=== PATIENT | female | born 1975 | race American Indian/Alaskan Native ===

== ENCOUNTER 2017-07-17 17:08 | Emergency (ER) | payer MEDICARE ==
[2017-07-17 17:53] LABS: Basophils % (Auto) 0.6 % (0.0-1.8); Eosinophils # (Auto) 0.1 K/mm3 (0.0-0.4); Eosinophils % (Auto) 0.8 % (0.0-4.3); Hemoglobin 12.6 gm/dl (10.1-14.3); Lymphocytes # (Auto) 1.6 K/mm3 (1.2-5.4); Lymphocytes % (Auto) 21.7 % (13.4-35.0); Mean Corpuscular HGB Conc 32 % (30-34); Mean Corpuscular Hemoglobin 27 pg (28-32); Mean Corpuscular Volume 86 fl (79-97); Monocytes # (Auto) 0.6 K/mm3 (0.0-0.8); Monocytes % (Auto) 8.3 % (0.0-7.3); Platelet Count 311 K/mm3 (140-440); Red Blood Count 4.68 M/mm3 (3.65-5.03); Red Cell Distribution Width 15.9 % (13.2-15.2)
[2017-07-17 18:11] LABS: BUN/Creatinine Ratio 9; Blood Urea Nitrogen 6 mg/dL (7-17); Calcium 8.7 mg/dL (8.4-10.2); Hemolysis Index 5
[2017-07-17 19:57] LABS: Bilirubin,Urine NEG (Negative); Blood,Urine MOD (Negative); Color,Urine Yellow (Yellow); Mucus,Urine 2+ /HPF; Urobilinogen,Urine < 2.0 mg/dL (<2.0)
[2017-07-17 20:14] LABS: Amphetamine Screen,Urine PRESUMPTIVE NEGATIVE; Benzodiazepines Screen,Urine PRESUMPTIVE NEGATIVE; Cocaine Screen,Urine PRESUMPTIVE NEGATIVE; Methadone Screen,Urine PRESUMPTIVE NEGATIVE; Opiate Screen,Urine PRESUMPTIVE NEGATIVE
[2017-07-17 20:26] LABS: Cannabinoid Screen,Urine PRESUMPTIVE POSITIVE
[2017-07-17] MEDS ORDERED: NORVASC PO ONE (22:10)
--- NOTE | 2017-07-17 22:11 | Emergency Department Report ---
ED General Adult HPI - General Chief complaint: Psych Stated complaint: MEDICAL EVAL Time Seen by Provider: 07/17/17 18:41 Source: patient Mode of arrival: Ambulatory Limitations: No Limitations - History of Present Illness Initial comments: Ms. Powell is a 42 yo female with hx of schizophrenia and bipolar affective disorder. Her daughter called 911 for depression and suicidal ideation. She does not have a plan to harm herself. However she feels helpless and out of control. She has not taken her psychiatric medications in 3 days. She has not seen a psychiatrist since moving from [place], [place] 2 years ago. She came to live with her daughter due to her multiple medical issues mainly stroke. She's severely depressed. No hallucinations currently. She has had a previous suicide attempt. - Related Data Allergies Allergy/AdvReac Type Severity Reaction Status Date / Time banana Allergy Hives Verified 07/17/17 17:14 Fish Containing Products Allergy Hives Verified 07/17/17 17:14 Latex, Natural Rubber Allergy Hives Verified 07/17/17 17:14 ED Review of Systems ROS: Stated complaint: MEDICAL EVAL Other details as noted in HPI Comment: All other systems reviewed and negative Constitutional: denies: fever, malaise Respiratory: denies: cough Cardiovascular: denies: chest pain ED Past Medical Hx - Past Medical History Hx Hypertension: Yes Hx CVA: Yes Hx Psychiatric Treatment: Yes Additional medical history: trach - Surgical History Additional Surgical History: valve replacement - Social History Smoking Status: Current Every Day Smoker Substance Use Type: Alcohol, Marijuana ED Physical Exam - General Limitations: No Limitations General appearance: alert, in no apparent distress - Head Head exam: Present: atraumatic, normocephalic - Eye Eye exam: Present: normal appearance - ENT ENT exam: Present: mucous membranes moist - Neck Neck exam: Present: normal inspection, other (tracheostomy site clean and dry) - Respiratory Respiratory exam: Present: normal lung sounds bilaterally. Absent: respiratory distress, wheezes, rales, rhonchi - Cardiovascular Cardiovascular Exam: Present: regular rate, normal rhythm. Absent: systolic murmur, diastolic murmur, rubs, gallop - GI/Abdominal GI/Abdominal exam: Present: soft, normal bowel sounds. Absent: distended, tenderness, guarding, rebound - Extremities Exam Extremities exam: Present: normal inspection - Back Exam Back exam: Present: normal inspection - Neurological Exam Neurological exam: Present: alert, oriented X3, normal gait. Absent: motor sensory deficit - Psychiatric Psychiatric exam: Present: depressed, flat affect, suicidal ideation - Skin Skin exam: Present: warm, dry, intact, normal color. Absent: rash ED Course Vital Signs 07/17/17 07/17/17 17:14 20:14 Temperature 98.7 F 99 F Pulse Rate 72 72 Respiratory 20 20 Rate Blood Pressure 182/111 Blood Pressure 182/100 [Left] O2 Sat by Pulse 100 98 Oximetry ED Medical Decision Making - Lab Data Result diagrams: 07/17/17 17:31 07/17/17 17:31 Laboratory Results - last 24 hr 07/17/17 07/17/17 07/17/17 17:31 17:31 17:31 WBC RBC Hgb Hct MCV MCH MCHC RDW Plt Count Lymph % (Auto) Nolan % (Auto) Eos % (Auto) Baso % (Auto) Lymph # Nolan # Eos # Baso # Seg Neutrophils % Seg Neutrophils # Sodium 135 L Potassium 3.7 Chloride 95.9 L Carbon Dioxide 26 Anion Gap 17 BUN 6 L Creatinine 0.7 Estimated GFR > 60 BUN/Creatinine Ratio 9 Glucose 290 H Calcium 8.7 HCG, Qual Urine Color Urine Turbidity Urine pH Ur Specific [place] Urine Protein Urine Glucose (UA) Urine Ketones Urine Blood Urine Nitrite Urine Bilirubin Urine Urobilinogen Ur Leukocyte Esterase Urine WBC (Auto) Urine RBC (Auto) U Epithel Cells (Auto) Urine Mucus Salicylates < 0.3 L Urine Opiates Screen Urine Methadone Screen Acetaminophen < 5.0 L Ur Barbiturates Screen Ur Phencyclidine Scrn Ur Amphetamines Screen U Benzodiazepines Scrn Urine Cocaine Screen U Marijuana (THC) Screen Drugs of Abuse Note Plasma/Serum Alcohol 07/17/17 07/17/17 07/17/17 17:31 17:31 17:31 WBC 7.1 RBC 4.68 Hgb 12.6 Hct 40.0 MCV 86 MCH 27 L MCHC 32 RDW 15.9 H Plt Count 311 Lymph % (Auto) 21.7 Nolan % (Auto) 8.3 H Eos % (Auto) 0.8 Baso % (Auto) 0.6 Lymph # 1.6 Nolan # 0.6 Eos # 0.1 Baso # 0.0 Seg Neutrophils % 68.6 Seg Neutrophils # 4.9 Sodium Potassium Chloride Carbon Dioxide Anion Gap BUN Creatinine Estimated GFR BUN/Creatinine Ratio Glucose Calcium HCG, Qual Negative Urine Color Urine Turbidity Urine pH Ur Specific [place] Urine Protein Urine Glucose (UA) Urine Ketones Urine Blood Urine Nitrite Urine Bilirubin Urine Urobilinogen Ur Leukocyte Esterase Urine WBC (Auto) Urine RBC (Auto) U Epithel Cells (Auto) Urine Mucus Salicylates Urine Opiates Screen Urine Methadone Screen Acetaminophen Ur Barbiturates Screen Ur Phencyclidine Scrn Ur Amphetamines Screen U Benzodiazepines Scrn Urine Cocaine Screen U Marijuana (THC) Screen Drugs of Abuse Note Plasma/Serum Alcohol < 0.01 07/17/17 07/17/17 19:37 19:37 WBC RBC Hgb Hct MCV MCH MCHC RDW Plt Count Lymph % (Auto) Nolan % (Auto) Eos % (Auto) Baso % (Auto) Lymph # Nolan # Eos # Baso # Seg Neutrophils % Seg Neutrophils # Sodium Potassium Chloride Carbon Dioxide Anion Gap BUN Creatinine Estimated GFR BUN/Creatinine Ratio Glucose Calcium HCG, Qual Urine Color Yellow Urine Turbidity Clear Urine pH 5.0 Ur Specific [place] 1.036 H Urine Protein 100 mg/dl Urine Glucose (UA) >=500 Urine Ketones 20 Urine Blood Mod Urine Nitrite Neg Urine Bilirubin Neg Urine Urobilinogen < 2.0 Ur Leukocyte Esterase Neg Urine WBC (Auto) 3.0 Urine RBC (Auto) 14.0 U Epithel Cells (Auto) 21.0 H Urine Mucus 2+ Salicylates Urine Opiates Screen Presumptive negative Urine Methadone Screen Presumptive negative Acetaminophen Ur Barbiturates Screen Presumptive negative Ur Phencyclidine Scrn Presumptive negative Ur Amphetamines Screen Presumptive negative U Benzodiazepines Scrn Presumptive negative Urine Cocaine Screen Presumptive negative U Marijuana (THC) Screen Presumptive positive Drugs of Abuse Note Disclamer Plasma/Serum Alcohol Vital Signs - 24 hr 07/17/17 07/17/17 17:14 20:14 Temperature 98.7 F 99 F Pulse Rate 72 72 Respiratory 20 20 Rate Blood Pressure 182/111 Blood Pressure 182/100 [Left] O2 Sat by Pulse 100 98 Oximetry - Medical Decision Making Ms. Powell has a history of schizophrenia and bipolar affective disorder. She does not have access to psychiatric care. After evaluation by mental health detail assembler, she was unable to contract for safety. She is placed on 1013 for suicidal ideation with high risk of self-harm with previous suicide attempt. She will be transferred to psychiatric facility. She is medically clear at this time for psychiatric care. She has asymptomatic hypertension. Mild hyperglycemia. Critical care attestation.: If time is entered above; I have spent that time in minutes in the direct care of this critically ill patient, excluding procedure time. ED Disposition Clinical Impression: Suicidal ideation, Acute depression Disposition: [id number]/TX-70 ANOTHER TYPE HLTHCARE Is pt being admited?: No Does the pt Need Aspirin: No Condition: Stable Time of Disposition: 22:12
[2017-07-18 11:49] LABS: INR 2.9 (0.87-1.13); Partial Thromboplastin Time 53.6 Sec. (24.2-36.6)
--- NOTE | 2017-07-18 15:11 | Consultation ---
History of Present Illness - Reason for Consult Consult date: 07/18/17 Reason for consult: Mental Health Evaluation Requesting physician: MICHAEL BENDER - Chief Complaint Chief complaint: "My kids are not right" - History of Present Psychiatric Illness 42 y.o. AA female presenting to [facility] for depression and SI's. Today the patient is calm and cooperative during the assessment. She stated that she told her baker that she was suicidal because of the relationship with her kids. She stated ever since her stroke several tears ago, her relationship with her kids has been "awful." She stated that she cannot cope with the stress from their relationship. She acknowledged prior suicide attempts in the past by overdose. She does not have a suicide plan when asked. She rate her depression 7/10, with 10 being the worse. She stated having a poor appetite with erratic sleep. She denies HI's and AVHs'. She denies recreational drug use, but positive for marijuana. She denies alcohol consumption (etoh). Medications and Allergies Allergies Allergy/AdvReac Type Severity Reaction Status Date / Time banana Allergy Hives Verified 07/17/17 17:14 Fish Containing Products Allergy Hives Verified 07/17/17 17:14 Latex, Natural Rubber Allergy Hives Verified 07/17/17 17:14 Home Medications Medication Instructions Recorded Confirmed Last Taken Type Amlodipine Besylate [Norvasc] 10 mg PO DAILY 07/17/17 07/17/17 Unknown History Lisinopril [Zestril] 10 mg PO DAILY 07/17/17 07/17/17 Unknown History Metoprolol [Lopressor TAB] 50 mg PO DAILY 07/17/17 07/17/17 Unknown History Warfarin [Coumadin] 7.5 mg PO QDAY 07/17/17 07/18/17 1 Day Ago History ~07/17/17 risperiDONE [RisperDAL] 1 mg PO HS 07/17/17 07/17/17 Unknown History traZODone [Desyrel] 50 mg PO QHS 07/17/17 07/17/17 Unknown History Active Meds: Active Medications Amlodipine Besylate (Norvasc) 10 mg PO DAILY [facility] Lisinopril (Zestril) 10 mg PO DAILY [facility] Metoprolol Tartrate (Lopressor) 50 mg PO DAILY [facility] Risperidone (Risperdal) 1 mg PO HS [facility] Trazodone HCl (Desyrel) 50 mg PO QHS [facility] Warfarin Sodium (Coumadin) 7.5 mg PO DAILY@1700 [facility]; Protocol Warfarin Sodium (Coumadin Pharmacy To Dose) 1 each PO PKCONSULT [facility]I Past psychiatric history - Past Medical History Past Medical History: stroke Past Surgical History: Other (Trach, Heart Valve Replacement ) - past Psychiatric treatment and history Psych: Depression psychiatric treatment history: Multiple inpatient psy settings. Denies a fam psy hx. - Social History Social history: lives with family Mental Status Exam - Vital signs Last Vital Signs Temp 98.6 F 07/18/17 10:00 Pulse 98 H 07/18/17 10:00 Resp 18 07/18/17 10:00 BP 144/83 07/18/17 10:00 Pulse Ox 95 07/18/17 10:00 - Exam Narrative exam: MSE: Appearance: calm, cooperative Behavior: regular eye contact Speech: regular rate and tone Mood: "depressed" withdrawn Affect: flat Thought Process: circumstantial Thought Content: denies HI's and AVH's Motor Activity: ambulatory Cognition: A/O x 3 Insight: fair Judgment: variable Results Result Diagrams: 07/17/17 17:31 07/17/17 17:31 Abnormal lab results 07/17/17 07/17/17 07/17/17 Range/Units 17:31 17:31 17:31 MCH (28-32) pg RDW (13.2-15.2) % Dixon % (Auto) (0.0-7.3) % PT (12.2-14.9) Sec. INR (0.87-1.13) APTT (24.2-36.6) Sec. Sodium 135 L (137-145) mmol/L Chloride 95.9 L (98-107) mmol/L BUN 6 L (7-17) mg/dL Glucose 290 H (65-100) mg/dL Ur Specific [place] (1.003-1.030) U Epithel Cells (Auto) (0-13.0) /HPF Salicylates < 0.3 L (2.8-20.0) mg/dL Acetaminophen < 5.0 L (10.0-30.0) ug/mL 07/17/17 07/17/17 07/18/17 Range/Units 17:31 19:37 11:17 MCH 27 L (28-32) pg RDW 15.9 H (13.2-15.2) % Dixon % (Auto) 8.3 H (0.0-7.3) % PT 32.3 H (12.2-14.9) Sec. INR 2.90 H (0.87-1.13) APTT 53.6 H (24.2-36.6) Sec. Sodium (137-145) mmol/L Chloride (98-107) mmol/L BUN (7-17) mg/dL Glucose (65-100) mg/dL Ur Specific [place] 1.036 H (1.003-1.030) U Epithel Cells (Auto) 21.0 H (0-13.0) /HPF Salicylates (2.8-20.0) mg/dL Acetaminophen (10.0-30.0) ug/mL All other labs normal. Assessment and Plan Assessment and plan: Impression: MDD, Severe Type. Cannabis Use DO. Today the patient is calm and cooperative during the assessment. The patient has a trach. DDx: R/O Bipolar DO, R/O Substance Induced Mood DO Recommendation/Plan: Continue 1013 with placement to inpatient psy services. Start Remeron 15 mg PO HS for depression. Discussed possible suicidality/ medication induced george with patient. Discussed generalized coping skills with patient.
[2017-07-18] MEDS ORDERED: COUMADIN PO SCH (17:00)
[2017-07-18] MEDS ORDERED: NORMODYNE PO ONE (22:00)
[2017-07-18] MEDS ORDERED: REMERON PO SCH (22:00)
[2017-07-18] MEDS ORDERED: DESYREL PO SCH (22:00)
[2017-07-18] MEDS ORDERED: RisperDAL PO SCH (22:00)
[2017-07-18] MEDS ORDERED: TYLENOL PO ONE (22:50)
[2017-07-18] MEDS ORDERED: TYLENOL ONE (22:57)
[2017-07-19] MEDS ORDERED: LANTUS SUB-Q SCH ×2 (01:00→22:00)
[2017-07-19 05:26] LABS: INR 3.37 (0.87-1.13)
[2017-07-19] MEDS ORDERED: NORVASC PO SCH (10:00)
[2017-07-19] MEDS ORDERED: LOPRESSOR PO SCH (10:00)
[2017-07-19] MEDS ORDERED: ZESTRIL PO SCH ×3 (10:00)
--- NOTE | 2017-07-19 12:33 | Progress Note ---
Subjective - Reason for Consult Consult date: 07/19/17 Reason for consult: Psychiatry Follow-up - Chief Complaint Chief complaint: "Hello" 42 y.o. AA female presenting to [facility] for depression and SI's. Today the patient is calm and cooperative during the assessment. She stated that she got rest last night and feels much better. She stated that she want her family life to be better. She denies SI/HI's and AVH's. She denies any side effects of her medication. Mental Status Exam - Vital signs Last Vital Signs Temp 98.8 F 07/19/17 09:00 Pulse 78 07/19/17 09:00 Resp 18 07/19/17 09:00 BP 166/89 07/19/17 09:00 Pulse Ox 98 07/19/17 09:00 - Exam Narrative exam: MSE: Appearance: calm, cooperative Behavior: regular eye contact Speech: regular rate and tone Mood: "better" Affect: congruent to mood Thought Process: circumstantial Thought Content: denies HI's and AVH's Motor Activity: ambulatory Cognition: A/O x 3 Insight: fair Judgment: fair Assessment and Plan Impression: MDD, Severe Type. Cannabis Use DO. Today the patient is calm and cooperative during the assessment. The patient has a trach. DDx: R/O Bipolar DO, R/O Substance Induced Mood DO Recommendation/Plan: Continue 1013 with placement to inpatient psy services. Continue Remeron 15 mg PO HS for depression. Discussed possible suicidality/ medication induced george with patient. Discussed generalized coping skills with patient.
[2017-07-19 13:19] VITALS: BP 166/89
[2017-07-19] MEDS ORDERED: COUMADIN PO SCH (17:00)
== END 2017-07-19 11:55 | disposition other institution (70) ==
LOC: ED 17:08 → EEVIPCON 17:08 → ED 07-19 11:55
DX: F31.89 Other bipolar disorder (principal); F20.9 Schizophrenia, unspecified; F12.10 Cannabis abuse, uncomplicated; Z79.899 Other long term (current) drug therapy; Z91.013 Allergy to seafood; Z91.040 Latex allergy status; Z91.018 Allergy to other foods; Z93.0 Tracheostomy status; I10 Essential (primary) hypertension; F17.200 Nicotine dependence, unspecified, uncomplicated; Z86.73 Personal history of transient ischemic attack (TIA), and cerebral infarction without residual deficits; Z95.2 Presence of prosthetic heart valve
CPT/HCPCS: 36415; 80048; 80307; 81001; 82962; 84703; 85025; 85610; 85730; 99285; G0480; 80320; J1815

== ENCOUNTER 2017-07-29 22:13 | Emergency (ER) | payer MEDICARE ==
[2017-07-29 22:47] LABS: Hematocrit 36.2 % (30.3-42.9); Hemoglobin 11.2 gm/dl (10.1-14.3); Mean Corpuscular HGB Conc 31 % (30-34); Mean Corpuscular Hemoglobin 27 pg (28-32); Mean Corpuscular Volume 86 fl (79-97); Platelet Count 278 K/mm3 (140-440); Red Blood Count 4.22 M/mm3 (3.65-5.03); Red Cell Distribution Width 17.3 % (13.2-15.2)
[2017-07-29 23:06] LABS: BUN/Creatinine Ratio 10; Blood Urea Nitrogen 7 mg/dL (7-17); Calcium 8.6 mg/dL (8.4-10.2); Hemolysis Index 6
--- NOTE | 2017-07-29 23:16 | XRay Report ---
FINAL REPORT PROCEDURE: XR TIBIA FIBULA 2V RT TECHNIQUE: RIGHT tibia and fibula radiographs, AP and lateral views. CPT 59231 HISTORY: Rt lower leg pain/swelling for injury COMPARISON: No prior studies are available for comparison. FINDINGS: There has been previous internal fixation of the distal fibula. A plate and 5 screws stabilize the distal fibular region. No acute fracture dislocation is seen. Mild narrowing of the joint spaces is noted. The soft tissues are normal. IMPRESSION: There is no evidence of an acute fracture. Previous internal fixation of the distal fibula with hardware in this region as described. Mild arthritis..
[2017-07-30] MEDS ORDERED: TORADOL IM ONE (03:56)
--- NOTE | 2017-07-30 06:11 | Emergency Department Report ---
HPI - General Chief Complaint: Extremity Injury, Lower Time Seen by Provider: 07/30/17 03:24 - HPI HPI: 42-year-old demented female presents to the emergency department with complaint of pain, redness and swelling to the right lower leg after repeatedly hanging that leg on the bus while trying to get in and out multiple times yesterday. Patient has a history of CVA with right-sided weakness and sometimes has an unsteady gait at baseline and this has caused her to hit her leg. [facility] after being [facility] from [place] and she keeps her leg on their transportation. She also has a history of hypertension, trach. Patient was at [place] for depression but does have a previous history of alcohol and other substance abuse history. The area of redness and/ or bruising is reports the bottom of her rojas but she says the pain is most of her leg. She has not taken anything for her symptoms prior presentation. ED Past Medical Hx - Past Medical History Hx Hypertension: Yes Hx CVA: Yes (right-sided weakness) Hx Psychiatric Treatment: Yes (depression SI) Additional medical history: trach - Surgical History Additional Surgical History: valve replacement - Social History Smoking Status: Current Every Day Smoker Substance Use Type: None - Medications Home Medications: Home Medications Medication Instructions Recorded Confirmed Last Taken Type Amlodipine Besylate [Norvasc] 10 mg PO DAILY 07/17/17 07/17/17 Unknown History Lisinopril [Zestril] 10 mg PO DAILY 07/17/17 07/17/17 Unknown History Metoprolol [Lopressor TAB] 50 mg PO DAILY 07/17/17 07/17/17 Unknown History Warfarin [Coumadin] 7.5 mg PO QDAY 07/17/17 07/18/17 1 Day Ago History ~07/17/17 risperiDONE [RisperDAL] 1 mg PO HS 07/17/17 07/17/17 Unknown History traZODone [Desyrel] 50 mg PO QHS 07/17/17 07/17/17 Unknown History Ibuprofen [Motrin 600 MG tab] 600 mg PO Q8H PRN #20 tablet 07/30/17 Unknown Rx ED Review of Systems ROS: Stated complaint: RIGHT LEG PAIN Other details as noted in HPI Comment: All other systems reviewed and negative Constitutional: denies: chills, fever Eyes: denies: eye pain, eye discharge, vision change ENT: denies: ear pain, throat pain Respiratory: denies: cough, shortness of breath, wheezing Cardiovascular: denies: chest pain, palpitations Gastrointestinal: denies: abdominal pain, nausea, diarrhea Genitourinary: denies: urgency, dysuria, discharge Musculoskeletal: joint swelling, arthralgia, myalgia. denies: back pain Skin: change in color. denies: lesions Neurological: denies: headache, weakness, paresthesias Physical Exam - Physical Exam Vital Signs: Vital Signs 07/29/17 07/30/17 07/30/17 22:20 02:56 03:01 Temperature 98.6 F Pulse Rate 116 H 96 H 91 H Respiratory 24 16 24 Rate Blood Pressure 170/103 148/98 O2 Sat by Pulse 98 Oximetry 07/30/17 07/30/17 07/30/17 03:15 03:30 03:45 Temperature Pulse Rate 94 H 93 H 82 Respiratory 22 22 23 Rate Blood Pressure 139/87 157/110 164/92 O2 Sat by Pulse 99 100 97 Oximetry 07/30/17 07/30/17 07/30/17 04:00 04:15 04:30 Temperature Pulse Rate 87 80 80 Respiratory 24 23 21 Rate Blood Pressure 168/93 165/96 173/99 O2 Sat by Pulse 97 96 97 Oximetry 07/30/17 07/30/17 04:45 05:00 Temperature Pulse Rate 91 H 81 Respiratory 19 21 Rate Blood Pressure 178/94 175/100 O2 Sat by Pulse 96 97 Oximetry Physical Exam: GENERAL: The patient is well-developed well-nourished. HENT: Normocephalic. Atraumatic. Patient has moist mucous membranes. EYES: Extraocular motions are intact. Pupils equal reactive to light bilaterally. NECK: Supple. Trachea is midline. Trachea and collar in place. CHEST/LUNGS: Clear to auscultation. There is no respiratory distress noted. HEART/CARDIOVASCULAR: Regular. There is no tachycardia. There is no murmur. ABDOMEN: Abdomen is soft, nontender. Patient has normal bowel sounds. There is no abdominal distention. SKIN: There is 1-2+ pitting edema to the right lower extremity. There is some erythema and warmth and some ecchymosis to the anterior distal right tib-fib. No fluctuance. NEURO: The patient is awake, alert, and oriented. The patient is cooperative. The patient has no focal neurologic deficits. The patient has normal speech. MUSCULOSKELETAL: There is no tenderness or deformity. There is no evidence of acute injury. Pedal pulses +2 over 4 to the affected right foot. ED Course Vital Signs 07/29/17 07/30/17 07/30/17 22:20 02:56 03:01 Temperature 98.6 F Pulse Rate 116 H 96 H 91 H Respiratory 24 16 24 Rate Blood Pressure 170/103 148/98 O2 Sat by Pulse 98 Oximetry 07/30/17 07/30/17 07/30/17 03:15 03:30 03:45 Temperature Pulse Rate 94 H 93 H 82 Respiratory 22 22 23 Rate Blood Pressure 139/87 157/110 164/92 O2 Sat by Pulse 99 100 97 Oximetry 07/30/17 07/30/17 07/30/17 04:00 04:15 04:30 Temperature Pulse Rate 87 80 80 Respiratory 24 23 21 Rate Blood Pressure 168/93 165/96 173/99 O2 Sat by Pulse 97 96 97 Oximetry 07/30/17 07/30/17 04:45 05:00 Temperature Pulse Rate 91 H 81 Respiratory 19 21 Rate Blood Pressure 178/94 175/100 O2 Sat by Pulse 96 97 Oximetry ED Medical Decision Making - Lab Data Result diagrams: 07/29/17 22:30 07/29/17 22:30 - Radiology Data Radiology results: report reviewed, image reviewed interpreted by me: XR of right tib/fib does not show any fracture or dislocation RLE doppler ultrasound negative for DVT - Medical Decision Making The patient has some bruising and redness, discomfort and some swelling to the right lower leg after hitting it on the van a couple of times since yesterday. She has some chronic gait problems from previous CVA. XR does not show any fracture or dislocation. Due to the swelling, U/S doppler done that does not show any DVT. Given toradol for pain in the ED and NSAIDs Rx for home as she has a substance abuse history. There is some mild redness to the area but also some echymoses and it is more likely a contusion than cellulitis. No leukocytosis or fever. We discussed monitoring it for any spreading or development of erythema and she will return if there is any worsening of the symptoms. Otherwise she will f/u with PCP and was given referral for ortho. - Differential Diagnosis contusion, cellulitis, DVT Critical Care Time: No Critical care attestation.: If time is entered above; I have spent that time in minutes in the direct care of this critically ill patient, excluding procedure time. ED Disposition Clinical Impression: Right leg pain, Hyperglycemia Contusion of right leg Qualifiers: Encounter type: initial encounter Qualified Code(s): S80.11XA - Contusion of right lower leg, initial encounter Disposition: TO HOME OR SELFCARE Is pt being admited?: No Condition: Stable Instructions: Contusion in Adults (ED), Arthralgia (ED) Additional Instructions: Please follow-up with your primary care physician once you're able to do so. Return to the emergency Department with any worsening of your symptoms or any acute distress. I have given him a referral for a local orthopedist, Dr. Boateng, to follow up regarding her leg pain if it continues to bother you. Prescriptions: Ibuprofen [Motrin 600 MG tab] 600 mg PO Q8H PRN #20 tablet PRN Reason: Pain Referrals: SUZIE TREADWELL MD [Primary Care Provider] - 3-5 Days ABNER BOATENG MD [Staff Physician] - 3-5 Days
[2017-07-30 09:24] VITALS: BP 157/89
== END 2017-07-30 09:40 | disposition home or self-care (01) ==
LOC: ED 22:13
DX: S80.11XA Contusion of right lower leg, initial encounter (principal); I10 Essential (primary) hypertension; F32.9 Major depressive disorder, single episode, unspecified; F17.200 Nicotine dependence, unspecified, uncomplicated; R73.9 Hyperglycemia, unspecified; W17.89XA Other fall from one level to another, initial encounter; Y93.89 Activity, other specified; Y92.89 Other specified places as the place of occurrence of the external cause; Y99.8 Other external cause status
CPT/HCPCS: 36415; 73590; 80048; 85027; 93971; 96372; 99283; J1885

== ENCOUNTER 2017-08-01 19:31 | Emergency (ER) | payer MEDICARE ==
[2017-08-01 19:42] VITALS: BP 156/102
--- NOTE | 2017-08-01 21:54 | XRay Report ---
FINAL REPORT PROCEDURE: XR ANKLE 2V RT TECHNIQUE: RIGHT ankle radiographs, AP and lateral views. HISTORY: right ankle pain s/p injury COMPARISON: No prior studies are available for comparison. FINDINGS: Internal fixation hardware is identified in the distal fibula and tibia with a plate and multiple screws. The alignment is satisfactory. An acute fracture is not identified. Mild degree soft tissue swelling is noted. IMPRESSION: Internal fixation hardware is in place with satisfactory alignment.
[2017-08-01] MEDS ORDERED: MOTRIN PO ONE (22:13)
--- NOTE | 2017-08-01 22:13 | Emergency Department Report ---
ED Lower Extremity HPI - General Chief Complaint: Extremity Injury, Lower Stated Complaint: RT LEG PAIN Time Seen by Provider: 08/01/17 21:38 Source: patient Mode of arrival: Ambulatory Limitations: No Limitations - History of Present Illness Initial Comments: This is a 42-year-old female nontoxic, well nourished in appearance, no acute signs of distress presents to the ED with c/o of right ankle pain and swelling x2 days. Patient stated that he was getting onto of a truck today and band her ankle against the truck several times due to right sided weakness s/p stroke. Patient stated that he did not have any trauma to the head or any other extremities. Patient denies any joint redness, joint swelling, fever, chills, nausea, vomiting, chest pain or shortness breath. Patient denies abnormal or decreased gait. Patient denies any allergies. PMH includes CVA with right- sided weakness and hypertension. MD Complaint: ankle injury -: days(s) (2) Injury: Ankle: Right Type of Injury: blunt Place: street/outdoors Severity: mild Severity scale (0 -10): 8 Improves With: immobilization Worsens With: movement, palpation Context: direct blow Associated Symptoms: swelling, able to partially bear weight, ambulatory. denies: snap/pop sensation, numbness, tingling, unable to bear weight - Related Data Home Medications Medication Instructions Recorded Confirmed Last Taken Amlodipine Besylate [Norvasc] 10 mg PO DAILY 07/17/17 07/17/17 Unknown Lisinopril [Zestril] 10 mg PO DAILY 07/17/17 07/17/17 Unknown Metoprolol [Lopressor TAB] 50 mg PO DAILY 07/17/17 07/17/17 Unknown Warfarin [Coumadin] 7.5 mg PO QDAY 07/17/17 07/18/17 1 Day Ago ~07/17/17 risperiDONE [RisperDAL] 1 mg PO HS 07/17/17 07/17/17 Unknown traZODone [Desyrel] 50 mg PO QHS 07/17/17 07/17/17 Unknown Previous Rx's Medication Instructions Recorded Last Taken Type Ibuprofen [Motrin 600 MG tab] 600 mg PO Q8H PRN #20 tablet 07/30/17 Unknown Rx Acetaminophen/Codeine [Tylenol 1 tab PO Q6H PRN #12 tab 08/01/17 Unknown Rx /Codeine # 3 tab] Ibuprofen [Motrin] 600 mg PO Q8H PRN #30 tablet 08/01/17 Unknown Rx Allergies Allergy/AdvReac Type Severity Reaction Status Date / Time banana Allergy Hives Verified 07/17/17 17:14 Fish Containing Products Allergy Hives Verified 07/17/17 17:14 Latex, Natural Rubber Allergy Hives Verified 07/17/17 17:14 ED Review of Systems ROS: Stated complaint: RT LEG PAIN Other details as noted in HPI Constitutional: denies: chills, fever Eyes: denies: eye pain, eye discharge, vision change ENT: denies: ear pain, throat pain Respiratory: denies: cough, shortness of breath, wheezing Cardiovascular: denies: chest pain, palpitations Endocrine: no symptoms reported Gastrointestinal: denies: abdominal pain, nausea, diarrhea Genitourinary: denies: urgency, dysuria, discharge Musculoskeletal: arthralgia. denies: back pain, joint swelling Skin: denies: rash, lesions Neurological: denies: headache, weakness, paresthesias Psychiatric: denies: anxiety, depression Hematological/Lymphatic: denies: easy bleeding, easy bruising ED Past Medical Hx - Past Medical History Hx Hypertension: Yes Hx CVA: Yes (right-sided weakness) Hx Psychiatric Treatment: Yes (depression SI) Additional medical history: trach - Surgical History Additional Surgical History: valve replacement - Social History Smoking Status: Current Every Day Smoker Substance Use Type: None - Medications Home Medications: Home Medications Medication Instructions Recorded Confirmed Last Taken Type Amlodipine Besylate [Norvasc] 10 mg PO DAILY 07/17/17 07/17/17 Unknown History Lisinopril [Zestril] 10 mg PO DAILY 07/17/17 07/17/17 Unknown History Metoprolol [Lopressor TAB] 50 mg PO DAILY 07/17/17 07/17/17 Unknown History Warfarin [Coumadin] 7.5 mg PO QDAY 07/17/17 07/18/17 1 Day Ago History ~07/17/17 risperiDONE [RisperDAL] 1 mg PO HS 07/17/17 07/17/17 Unknown History traZODone [Desyrel] 50 mg PO QHS 07/17/17 07/17/17 Unknown History Ibuprofen [Motrin 600 MG tab] 600 mg PO Q8H PRN #20 tablet 07/30/17 Unknown Rx Acetaminophen/Codeine [Tylenol 1 tab PO Q6H PRN #12 tab 08/01/17 Unknown Rx /Codeine # 3 tab] Ibuprofen [Motrin] 600 mg PO Q8H PRN #30 tablet 08/01/17 Unknown Rx ED Physical Exam - General Limitations: No Limitations General appearance: alert, in no apparent distress - Head Head exam: Present: atraumatic, normocephalic - Eye Eye exam: Present: normal appearance Pupils: Present: normal accommodation - ENT ENT exam: Present: normal exam, mucous membranes moist - Neck Neck exam: Present: normal inspection, full ROM. Absent: tenderness, meningismus, lymphadenopathy - Respiratory Respiratory exam: Present: normal lung sounds bilaterally. Absent: respiratory distress, wheezes, rales, rhonchi, stridor, chest wall tenderness, accessory muscle use, decreased breath sounds, prolonged expiratory - Cardiovascular Cardiovascular Exam: Present: regular rate, normal rhythm, normal heart sounds. Absent: irregular rhythm, systolic murmur, diastolic murmur, rubs, gallop - GI/Abdominal GI/Abdominal exam: Present: soft, normal bowel sounds. Absent: distended, tenderness, guarding, rebound, rigid, diminished bowel sounds - Rectal Rectal exam: Present: deferred - Extremities Exam Extremities exam: Present: normal inspection, full ROM, tenderness, normal capillary refill. Absent: pedal edema, joint swelling, calf tenderness - Expanded Lower Extremity Exam Right Hip exam: Present: normal inspection, full ROM Upper Leg exam: Present: normal inspection, full ROM Knee exam: Present: normal inspection, full ROM Lower Leg exam: Present: normal inspection, full ROM. Absent: tenderness, swelling, abrasion, laceration, ecchymosis, deformity, crepidus, dislocation, erythema, palpable cord, Aria's sign Ankle exam: Present: normal inspection, full ROM, tenderness, swelling, ecchymosis. Absent: abrasion, laceration, deformity, crepidus, dislocation, erythema, anterior draw sign Foot/Toe exam: Present: normal inspection, full ROM. Absent: tenderness, swelling, abrasion, laceration, ecchymosis, deformity, crepidus, dislocation, erythema, amputation, puncture wound, foreign body, calcaneal tenderness, tenderness at base of 5th metatarsal, nail avulsion, subungual hematoma Neuro vascular tendon exam: Present: no vascular compromise. Absent: pulse deficit, abnormal cap refill, motor deficit, sensory deficit, tendon deficit, extremity cold to touch, pallor, abnormal 2-point discrimination, decreased fine /light touch, foot drop, peroneal nerve deficit, significant pain with passive ROM of distal joint Gait: Positive: observed and limited by pain - Back Exam Back exam: Present: normal inspection, full ROM - Neurological Exam Neurological exam: Present: alert, oriented X3, normal gait - Psychiatric Psychiatric exam: Present: normal affect, normal mood - Skin Skin exam: Present: warm, dry, intact, normal color. Absent: rash ED Course Vital Signs 08/01/17 19:36 Temperature 98.3 F Pulse Rate 101 H Respiratory 16 Rate Blood Pressure 156/102 O2 Sat by Pulse 99 Oximetry - Reevaluation(s) Reevaluation #1: 08/01/17 22:13 Patient is speaking in full sentences with no signs of distress noted. ED Lower Extremity MDM - Medical Decision Making This is a 42-year-old female that presents with right ankle sprain. Patient is stable and was examined by me. I referred patient to an orthopedic doctor for further evaluation for possible MRI. X-ray has been obtained and dictated by the radiologist. Patient is notified of the x-ray report with noted by the patient. Patient does have normal gait with no tenderness and no joint swelling. No ecchymosis. no joint redness or swelling. Not warm to touch. No signs of cellulites present. Patient received a ankle stirrup and patient stated has a walker at home. Patient was instructed to RICE therapy. Patient received Motrin for pain. Patient is discharged with Motrin. At time of discharge, the patient does not seem toxic or ill in appearance. No acute signs of distress noted. Patient agrees to discharge treatment plan of care. No further questions noted by the patient. Critical care attestation.: If time is entered above; I have spent that time in minutes in the direct care of this critically ill patient, excluding procedure time. ED Disposition Clinical Impression: Right ankle sprain Qualifiers: Encounter type: initial encounter Involved ligament of ankle: unspecified ligament Qualified Code(s): S93.401A - Sprain of unspecified ligament of right ankle, initial encounter Disposition: TO HOME OR SELFCARE Is pt being admited?: No Does the pt Need Aspirin: No Condition: Stable Instructions: Ankle Sprain (ED), Ankle Stirrup Splint (ED), RICE Therapy (ED), Ibuprofen (By mouth), Acetaminophen/Codeine (By mouth) Additional Instructions: Follow-up with a orthopedic doctor in 3-5 days or if symptoms worsen and continue return to emergency room as soon as possible. Prescriptions: Acetaminophen/Codeine [Tylenol /Codeine # 3 tab] 1 tab PO Q6H PRN #12 tab PRN Reason: Pain Ibuprofen [Motrin] 600 mg PO Q8H PRN #30 tablet PRN Reason: Pain Referrals: SUZIE TREADWELL MD [Primary Care Provider] - 3-5 Days ABNER MELENDEZ MD [Staff Physician] - 3-5 Days [facility] [Outside] - 3-5 Days [facility] [Outside] - 3-5 Days
== END 2017-08-01 22:44 | disposition home or self-care (01) ==
LOC: ED 19:31
DX: S93.401A Sprain of unspecified ligament of right ankle, initial encounter (principal); I10 Essential (primary) hypertension; F32.9 Major depressive disorder, single episode, unspecified; F17.200 Nicotine dependence, unspecified, uncomplicated; Z95.2 Presence of prosthetic heart valve; Z91.013 Allergy to seafood; Z91.040 Latex allergy status; V09.9XXA Pedestrian injured in unspecified transport accident, initial encounter; Y93.89 Activity, other specified; Y99.9 Unspecified external cause status; Y92.89 Other specified places as the place of occurrence of the external cause

== ENCOUNTER 2017-08-05 16:36 | Emergency (ER) | payer MEDICARE ==
[2017-08-05 16:59] VITALS: BP 147/94
[2017-08-05] MEDS ORDERED: TORADOL IM ONE (20:45)
--- NOTE | 2017-08-05 21:17 | Emergency Department Report ---
ED Lower Extremity HPI - General Chief Complaint: Extremity Injury, Lower Stated Complaint: RIGHT FOOT SWELLING Time Seen by Provider: 08/05/17 20:17 Source: patient Mode of arrival: Ambulatory Limitations: No Limitations - History of Present Illness Initial Comments: pt is a 42 y/o aaf with hx chronic rle pain who presents right foot pain 4/10 aching x 2 years pt is s/p cva 5 yrs ago, with chronic Right sided weakness. pt seen x 2 this week rx t3 and ibuprofen prn pain states medicines work but she just wants to be seen again pt has pcp Dr. Benitez, there has not been any new injury fall or trauma. MD Complaint: other (chronic foot pain ) Onset/Timin -: year(s) Injury: Ankle: Right, Foot: Right Type of Injury: blunt Place: home Severity: moderate Severity scale (0 -10): 3 Improves With: NSAID Worsens With: weight bearing (prolonged ), movement Associated Symptoms: swelling, ambulatory. denies: numbness, tingling - Related Data Home Medications Medication Instructions Recorded Confirmed Last Taken Amlodipine Besylate [Norvasc] 10 mg PO DAILY 07/17/17 07/17/17 Unknown Lisinopril [Zestril] 10 mg PO DAILY 07/17/17 07/17/17 Unknown Metoprolol [Lopressor TAB] 50 mg PO DAILY 07/17/17 07/17/17 Unknown Warfarin [Coumadin] 7.5 mg PO QDAY 07/17/17 07/18/17 1 Day Ago ~07/17/17 risperiDONE [RisperDAL] 1 mg PO HS 07/17/17 07/17/17 Unknown traZODone [Desyrel] 50 mg PO QHS 07/17/17 07/17/17 Unknown Previous Rx's Medication Instructions Recorded Last Taken Type Ibuprofen [Motrin 600 MG tab] 600 mg PO Q8H PRN #20 tablet 07/30/17 Unknown Rx Acetaminophen/Codeine [Tylenol 1 tab PO Q6H PRN #12 tab 08/01/17 Unknown Rx /Codeine # 3 tab] Ibuprofen [Motrin] 600 mg PO Q8H PRN #30 tablet 08/01/17 Unknown Rx Allergies Allergy/AdvReac Type Severity Reaction Status Date / Time banana Allergy Hives Verified 07/17/17 17:14 Fish Containing Products Allergy Hives Verified 07/17/17 17:14 Latex, Natural Rubber Allergy Hives Verified 07/17/17 17:14 ED Review of Systems ROS: Stated complaint: RIGHT FOOT SWELLING Other details as noted in HPI Constitutional: denies: chills, fever Eyes: denies: eye pain, eye discharge, vision change ENT: denies: ear pain, throat pain Respiratory: denies: cough, shortness of breath, wheezing Cardiovascular: denies: chest pain, palpitations Endocrine: no symptoms reported Gastrointestinal: denies: abdominal pain, nausea, diarrhea Genitourinary: denies: urgency, dysuria, discharge Musculoskeletal: joint swelling, arthralgia, myalgia. denies: back pain Skin: denies: rash, lesions Neurological: denies: headache, weakness, paresthesias Psychiatric: denies: anxiety, depression Hematological/Lymphatic: denies: easy bleeding, easy bruising ED Past Medical Hx - Past Medical History Hx Hypertension: Yes Hx CVA: Yes (right-sided weakness) Hx Psychiatric Treatment: Yes (depression SI) Additional medical history: trach - Surgical History Additional Surgical History: valve replacement - Social History Smoking Status: Current Every Day Smoker Substance Use Type: None - Medications Home Medications: Home Medications Medication Instructions Recorded Confirmed Last Taken Type Amlodipine Besylate [Norvasc] 10 mg PO DAILY 07/17/17 07/17/17 Unknown History Lisinopril [Zestril] 10 mg PO DAILY 07/17/17 07/17/17 Unknown History Metoprolol [Lopressor TAB] 50 mg PO DAILY 07/17/17 07/17/17 Unknown History Warfarin [Coumadin] 7.5 mg PO QDAY 07/17/17 07/18/17 1 Day Ago History ~07/17/17 risperiDONE [RisperDAL] 1 mg PO HS 07/17/17 07/17/17 Unknown History traZODone [Desyrel] 50 mg PO QHS 07/17/17 07/17/17 Unknown History Ibuprofen [Motrin 600 MG tab] 600 mg PO Q8H PRN #20 tablet 07/30/17 Unknown Rx Acetaminophen/Codeine [Tylenol 1 tab PO Q6H PRN #12 tab 08/01/17 Unknown Rx /Codeine # 3 tab] Ibuprofen [Motrin] 600 mg PO Q8H PRN #30 tablet 08/01/17 Unknown Rx ED Physical Exam - General Limitations: No Limitations General appearance: alert, in no apparent distress - Head Head exam: Present: atraumatic, normocephalic - Eye Eye exam: Present: normal appearance - ENT ENT exam: Present: mucous membranes moist - Neck Neck exam: Present: normal inspection - Respiratory Respiratory exam: Present: normal lung sounds bilaterally. Absent: respiratory distress - Cardiovascular Cardiovascular Exam: Present: regular rate, normal rhythm. Absent: systolic murmur, diastolic murmur, rubs, gallop - GI/Abdominal GI/Abdominal exam: Present: soft, normal bowel sounds - Extremities Exam Extremities exam: Present: full ROM, tenderness, normal capillary refill, joint swelling. Absent: pedal edema, calf tenderness - Expanded Lower Extremity Exam Right Ankle exam: Present: full ROM, tenderness, swelling. Absent: abrasion, laceration, ecchymosis, deformity, crepidus, dislocation, erythema, anterior draw sign Foot/Toe exam: Present: normal inspection, full ROM, tenderness. Absent: swelling, abrasion, laceration, ecchymosis, deformity, crepidus, dislocation, erythema, amputation, puncture wound, foreign body, calcaneal tenderness, tenderness at base of 5th metatarsal, nail avulsion, subungual hematoma Neuro vascular tendon exam: Present: no vascular compromise. Absent: pulse deficit, abnormal cap refill, motor deficit, sensory deficit, tendon deficit, extremity cold to touch, pallor, abnormal 2-point discrimination, decreased fine /light touch, foot drop, peroneal nerve deficit, significant pain with passive ROM of distal joint Gait: Positive: observed and limited by pain ED Course Vital Signs 08/05/17 16:54 Temperature 98.6 F Pulse Rate 114 H Respiratory 20 Rate Blood Pressure 147/94 O2 Sat by Pulse 96 Oximetry ED Lower Extremity MDM - Medical Decision Making this is a chronic condition pt has appropriate prn nsaids, pt has had same limb xray 2 in 1 week, pt is abmulatory to baseline per self admit, plan, ketorlac im, dc to home in stable condition , pt will follow up pcp in 2-3 days, pt verbalized agreement and understanding of same. Critical care attestation.: If time is entered above; I have spent that time in minutes in the direct care of this critically ill patient, excluding procedure time. ED Disposition Clinical Impression: Chronic toe pain, right foot Chronic ankle pain Qualifiers: Laterality: right Qualified Code(s): M25.571 - Pain in right ankle and joints of right foot; G89.29 - Other chronic pain Arthralgia Qualifiers: Joint pain location: foot Laterality: right Qualified Code(s): M25.571 - Pain in right ankle and joints of right foot Disposition: DC- TO HOME OR SELFCARE Is pt being admited?: No Does the pt Need Aspirin: No Condition: Good Instructions: Arthralgia (ED) Additional Instructions: follow up with Dr Benitez in 2-3 days Referrals: PRIMARY CARE, [Referring] - 3-5 Days Forms: Work/School Release Form(ED) Time of Disposition: 21:23
== END 2017-08-05 21:51 | disposition home or self-care (01) ==
LOC: ED 16:36
DX: G89.29 Other chronic pain (principal); M25.571 Pain in right ankle and joints of right foot; I10 Essential (primary) hypertension; F17.200 Nicotine dependence, unspecified, uncomplicated; Z91.040 Latex allergy status; Z91.013 Allergy to seafood; Z91.018 Allergy to other foods; Z86.73 Personal history of transient ischemic attack (TIA), and cerebral infarction without residual deficits
CPT/HCPCS: 96372; 99282; J1885

== ENCOUNTER 2017-09-18 18:36 | Emergency (ER) | payer MEDICARE ==
[2017-09-18 19:49] LABS: INR 2.45 (0.87-1.13)
--- NOTE | 2017-09-18 19:50 | XRay Report ---
FINAL REPORT PROCEDURE: XR CHEST ROUTINE 2V TECHNIQUE: PA and lateral chest radiographs were obtained. CPT 14687 HISTORY: Shortness of breath COMPARISON: No prior studies are available for comparison. FINDINGS: Heart: There has been prior valvular replacement. Mediastinum/Vessels: Normal. Lungs/Pleural space: Tracheostomy tube is present. No infiltrate, effusion, or pneumothorax is seen. Bony thorax: There is inferior subluxation of the right humeral head. Other: IMPRESSION: No radiographic evidence of acute abnormality. There is inferior subluxation of the right humeral head. Correlate for shoulder dislocation
[2017-09-18 19:51] LABS: BUN/Creatinine Ratio 16; Blood Urea Nitrogen 11 mg/dL (7-17); Hemolysis Index 3
[2017-09-18] MEDS ORDERED: ZOFRAN IV ONE (21:45)
[2017-09-18] MEDS ORDERED: MORPHINE IV ONE (21:46)
--- NOTE | 2017-09-18 23:15 | Emergency Department Report ---
ED General Adult HPI - General Chief complaint: Pain General Stated complaint: CHEST PAIN, VOMITING, AND SWELLING Time Seen by Provider: 09/18/17 21:22 Source: patient Mode of arrival: Ambulatory Limitations: Physical Limitation - History of Present Illness Initial comments: Patient presents to the emergency department with a chief complaint of nausea and vomiting. Patient states that her symptoms started today and denies having any sick contacts. Patient also complains of some lower leg swelling and states that she takes Lasix for this. Patient also complains of some generalized body pain but she states this is chronic after her stroke. Patient has no other complaints. Severity scale (0 -10): 8 - Related Data Home Medications Medication Instructions Recorded Confirmed Last Taken Amlodipine Besylate [Norvasc] 10 mg PO DAILY 07/17/17 07/17/17 Unknown Lisinopril [Zestril] 10 mg PO DAILY 07/17/17 07/17/17 Unknown Metoprolol [Lopressor TAB] 50 mg PO DAILY 07/17/17 07/17/17 Unknown Warfarin [Coumadin] 7.5 mg PO QDAY 07/17/17 07/18/17 1 Day Ago ~07/17/17 risperiDONE [RisperDAL] 1 mg PO HS 07/17/17 07/17/17 Unknown traZODone [Desyrel] 50 mg PO QHS 07/17/17 07/17/17 Unknown Previous Rx's Medication Instructions Recorded Last Taken Type Ibuprofen [Motrin 600 MG tab] 600 mg PO Q8H PRN #20 tablet 07/30/17 Unknown Rx Acetaminophen/Codeine [Tylenol 1 tab PO Q6H PRN #12 tab 08/01/17 Unknown Rx /Codeine # 3 tab] Ibuprofen [Motrin] 600 mg PO Q8H PRN #30 tablet 08/01/17 Unknown Rx HYDROcodone/ACETAMINOPHEN [[place] 1 each PO Q6HR PRN #12 tablet 09/18/17 Unknown Rx 5-325 Tablet] Ondansetron [Zofran Odt] 4 mg PO Q4HR PRN #20 tab.rapdis 09/18/17 Unknown Rx Allergies Allergy/AdvReac Type Severity Reaction Status Date / Time banana Allergy Hives Verified 07/17/17 17:14 Fish Containing Products Allergy Hives Verified 07/17/17 17:14 Latex, Natural Rubber Allergy Hives Verified 07/17/17 17:14 ED Review of Systems ROS: Stated complaint: CHEST PAIN, VOMITING, AND SWELLING Other details as noted in HPI Constitutional: denies: chills, fever Eyes: denies: eye pain, eye discharge, vision change ENT: denies: ear pain, throat pain Respiratory: denies: cough, shortness of breath, wheezing Cardiovascular: denies: chest pain, palpitations Endocrine: no symptoms reported Gastrointestinal: denies: abdominal pain, nausea, diarrhea Genitourinary: denies: urgency, dysuria, discharge Musculoskeletal: denies: back pain, joint swelling, arthralgia Skin: denies: rash, lesions Neurological: denies: headache, weakness, paresthesias Psychiatric: denies: anxiety, depression Hematological/Lymphatic: denies: easy bleeding, easy bruising ED Past Medical Hx - Past Medical History Previous Medical History?: Yes Hx Hypertension: Yes Hx CVA: Yes (right-sided weakness) Hx Psychiatric Treatment: Yes (depression SI) Additional medical history: trach - Surgical History Past Surgical History?: Yes Additional Surgical History: valve replacement - Social History Smoking Status: Current Every Day Smoker Substance Use Type: Alcohol, Prescribed - Medications Home Medications: Home Medications Medication Instructions Recorded Confirmed Last Taken Type Amlodipine Besylate [Norvasc] 10 mg PO DAILY 07/17/17 07/17/17 Unknown History Lisinopril [Zestril] 10 mg PO DAILY 07/17/17 07/17/17 Unknown History Metoprolol [Lopressor TAB] 50 mg PO DAILY 07/17/17 07/17/17 Unknown History Warfarin [Coumadin] 7.5 mg PO QDAY 07/17/17 07/18/17 1 Day Ago History ~07/17/17 risperiDONE [RisperDAL] 1 mg PO HS 07/17/17 07/17/17 Unknown History traZODone [Desyrel] 50 mg PO QHS 07/17/17 07/17/17 Unknown History Ibuprofen [Motrin 600 MG tab] 600 mg PO Q8H PRN #20 tablet 07/30/17 Unknown Rx Acetaminophen/Codeine [Tylenol 1 tab PO Q6H PRN #12 tab 08/01/17 Unknown Rx /Codeine # 3 tab] Ibuprofen [Motrin] 600 mg PO Q8H PRN #30 tablet 08/01/17 Unknown Rx HYDROcodone/ACETAMINOPHEN [[place] 1 each PO Q6HR PRN #12 tablet 09/18/17 Unknown Rx 5-325 Tablet] Ondansetron [Zofran Odt] 4 mg PO Q4HR PRN #20 tab.rapdis 09/18/17 Unknown Rx ED Physical Exam - General Limitations: Physical Limitation General appearance: alert, in no apparent distress - Head Head exam: Present: atraumatic, normocephalic - Eye Eye exam: Present: normal appearance - ENT ENT exam: Present: mucous membranes moist, other (tracheostomy present) - Neck Neck exam: Present: normal inspection - Respiratory Respiratory exam: Present: normal lung sounds bilaterally. Absent: respiratory distress - Cardiovascular Cardiovascular Exam: Present: regular rate, normal rhythm. Absent: systolic murmur, diastolic murmur, rubs, gallop - GI/Abdominal GI/Abdominal exam: Present: soft, normal bowel sounds - Extremities Exam Extremities exam: Present: pedal edema - Back Exam Back exam: Present: normal inspection - Neurological Exam Neurological exam: Present: alert, oriented X3 - Psychiatric Psychiatric exam: Present: normal affect, normal mood - Skin Skin exam: Present: warm, dry, intact, normal color. Absent: rash ED Course Vital Signs 09/18/17 09/18/17 09/18/17 18:48 21:12 21:16 Temperature 98.2 F Pulse Rate 81 71 Respiratory 20 21 Rate Blood Pressure 149/80 O2 Sat by Pulse 98 99 100 Oximetry 09/18/17 09/18/17 21:30 21:46 Temperature Pulse Rate 71 72 Respiratory 20 19 Rate Blood Pressure 182/98 182/98 O2 Sat by Pulse 98 99 Oximetry ED Medical Decision Making - Lab Data Result diagrams: 09/18/17 19:20 - Medical Decision Making Discussed results with the patient specifically the x-ray. Patient denies any recent trauma to his shoulder and denies any pain to the area. Critical care attestation.: If time is entered above; I have spent that time in minutes in the direct care of this critically ill patient, excluding procedure time. ED Disposition Clinical Impression: Nausea and vomiting Disposition: DC-01 TO HOME OR SELFCARE Is pt being admited?: No Does the pt Need Aspirin: No Condition: Stable Instructions: Acute Nausea and Vomiting (ED), Leg Edema (ED) Additional Instructions: Return is symptoms worse Prescriptions: HYDROcodone/ACETAMINOPHEN [[place] 5-325 Tablet] 1 each PO Q6HR PRN #12 tablet PRN Reason: Pain , Severe (7-10) Ondansetron [Zofran Odt] 4 mg PO Q4HR PRN #20 tab.rapdis PRN Reason: Nausea Referrals: PRIMARY CARE,MD [Primary Care Provider] - 3-5 Days [facility] [Outside] - 3-5 Days Time of Disposition: 23:15
[2017-09-18 23:51] VITALS: BP 140/111
== END 2017-09-19 01:20 | disposition home or self-care (01) ==
LOC: ED 18:36
DX: R11.2 Nausea with vomiting, unspecified (principal); I10 Essential (primary) hypertension; F32.9 Major depressive disorder, single episode, unspecified; F17.200 Nicotine dependence, unspecified, uncomplicated; Z86.73 Personal history of transient ischemic attack (TIA), and cerebral infarction without residual deficits; Z91.040 Latex allergy status; Z91.018 Allergy to other foods; Z91.013 Allergy to seafood
CPT/HCPCS: 36415; 71046; 80048; 83880; 84484; 85610; 85730; 93005; 93010; 96374; 96375; 99284; J2270; J2405

== ENCOUNTER 2017-09-21 17:17 | Emergency (ER) | payer MEDICARE ==
--- NOTE | 2017-09-21 20:03 | Emergency Department Report ---
ED Eye Problem HPI - General Chief complaint: Eye Problems Stated complaint: LEFT EYE SWOLLEN Time Seen by Provider: 09/21/17 19:22 Source: patient, family Mode of arrival: Ambulatory Limitations: No Limitations - History of Present Illness Initial comments: This is 42-year-old patient here she says she woke up this morning with redness and irritation to her left eye and swelling to left eye. She denies any injury. Patient has a history of stroke right side weakness. She said she had mitral valve replacement and was not compliant with her Coumadin so she had a stroke. She also has diabetes and high blood pressure. Her blood pressure is 147/100 and she says she didn't take her blood pressure medication today. Denies any nausea or vomiting. Left eye pain total 10 and feels irritated and likely is foreign body. She denies any injury. She says she's been rubbing her eyes a lot. Denies any change in vision. Denies any dizziness or nausea. Denies any headache, chest pain or shortness of breath. MD chief complaint: eye pain, eye redness -: This morning Onset Description: sudden Location: left eye Place: home If Injury: none Eye Symptoms: redness, pain (irritated and), foreign body sensation, itching Severity: mild Severity scale (0 -10): 2 Consistency: other (irritated) Context: other (none) Associated Symptoms: none Treatments Prior to Arrival: none - Related Data Patient Tetanus UTD: No Home Medications Medication Instructions Recorded Confirmed Last Taken Amlodipine Besylate [Norvasc] 10 mg PO DAILY 07/17/17 07/17/17 Unknown Lisinopril [Zestril] 10 mg PO DAILY 07/17/17 07/17/17 Unknown Metoprolol [Lopressor TAB] 50 mg PO DAILY 07/17/17 07/17/17 Unknown Warfarin [Coumadin] 7.5 mg PO QDAY 07/17/17 07/18/17 1 Day Ago ~07/17/17 risperiDONE [RisperDAL] 1 mg PO HS 07/17/17 07/17/17 Unknown traZODone [Desyrel] 50 mg PO QHS 07/17/17 07/17/17 Unknown Previous Rx's Medication Instructions Recorded Last Taken Type Ibuprofen [Motrin 600 MG tab] 600 mg PO Q8H PRN #20 tablet 07/30/17 Unknown Rx Ibuprofen [Motrin] 600 mg PO Q8H PRN #30 tablet 08/01/17 Unknown Rx HYDROcodone/ACETAMINOPHEN [[place] 1 each PO Q6HR PRN #12 tablet 09/18/17 Unknown Rx 5-325 Tablet] Ondansetron [Zofran Odt] 4 mg PO Q4HR PRN #20 tab.rapdis 09/18/17 Unknown Rx Acetaminophen/Codeine [Tylenol 1 tab PO Q6H PRN #12 tab 09/21/17 Unknown Rx /Codeine # 3 tab] Gentamicin 0.3% Ophth Soln 2 drops OS Q8H 7 Days #1 bottle 09/21/17 Unknown Rx Allergies Allergy/AdvReac Type Severity Reaction Status Date / Time banana Allergy Hives Verified 07/17/17 17:14 Fish Containing Products Allergy Hives Verified 07/17/17 17:14 Latex, Natural Rubber Allergy Hives Verified 07/17/17 17:14 ED Review of Systems ROS: Stated complaint: LEFT EYE SWOLLEN Other details as noted in HPI Constitutional: denies: chills, fever Eyes: eye pain, other (eye redness and foreign body sensation). denies: eye discharge, vision change ENT: denies: ear pain, throat pain, dental pain, epistaxis, congestion Respiratory: denies: cough, shortness of breath, SOB with exertion, SOB at rest , wheezing Cardiovascular: denies: chest pain, palpitations, edema, syncope Gastrointestinal: denies: abdominal pain, nausea, vomiting, diarrhea Genitourinary: denies: hematuria Musculoskeletal: denies: back pain, joint swelling, arthralgia Skin: denies: rash, lesions Neurological: abnormal gait (chronic right sided weakness that she walks with a limp but nothing new). denies: headache, weakness, numbness, paresthesias ED Past Medical Hx - Past Medical History Previous Medical History?: Yes Hx Hypertension: Yes Hx CVA: Yes (right-sided weakness) Hx Psychiatric Treatment: Yes (depression SI) Additional medical history: trach - Surgical History Past Surgical History?: Yes Additional Surgical History: valve replacement. Tracheostomy - Family History Family history: diabetes, hypertension - Social History Smoking Status: Current Every Day Smoker Substance Use Type: None - Medications Home Medications: Home Medications Medication Instructions Recorded Confirmed Last Taken Type Amlodipine Besylate [Norvasc] 10 mg PO DAILY 07/17/17 07/17/17 Unknown History Lisinopril [Zestril] 10 mg PO DAILY 07/17/17 07/17/17 Unknown History Metoprolol [Lopressor TAB] 50 mg PO DAILY 07/17/17 07/17/17 Unknown History Warfarin [Coumadin] 7.5 mg PO QDAY 07/17/17 07/18/17 1 Day Ago History ~07/17/17 risperiDONE [RisperDAL] 1 mg PO HS 07/17/17 07/17/17 Unknown History traZODone [Desyrel] 50 mg PO QHS 07/17/17 07/17/17 Unknown History Ibuprofen [Motrin 600 MG tab] 600 mg PO Q8H PRN #20 tablet 07/30/17 Unknown Rx Ibuprofen [Motrin] 600 mg PO Q8H PRN #30 tablet 08/01/17 Unknown Rx HYDROcodone/ACETAMINOPHEN [[place] 1 each PO Q6HR PRN #12 tablet 09/18/17 Unknown Rx 5-325 Tablet] Ondansetron [Zofran Odt] 4 mg PO Q4HR PRN #20 tab.rapdis 09/18/17 Unknown Rx Acetaminophen/Codeine [Tylenol 1 tab PO Q6H PRN #12 tab 09/21/17 Unknown Rx /Codeine # 3 tab] Gentamicin 0.3% Ophth Soln 2 drops OS Q8H 7 Days #1 bottle 09/21/17 Unknown Rx ED Physical Exam - General Limitations: No Limitations General appearance: alert, in no apparent distress - Head Head exam: Present: atraumatic, normocephalic, normal inspection, other (normal exam) - Eye Eye exam: Present: PERRL, EOMI, conjunctival injection. Absent: nystagmus, periorbital swelling, periorbital tenderness Pupils: Present: normal accommodation. Absent: miosis, mydriatic - Expanded Eye Exam Expanded Eyelids: Normal Inspection: Right (bilateral) Pupils: Regular, Round: Bilateral, Reactive: Bilateral Sclera/Conjunctival: Normal Inspection: Right (chemosis noted to left outer canthus), Injection: Left Anterior chamber: Normal Inspection: Bilateral Posterior chamber: Normal Inspection: Bilateral Visual acuity (R) = 20/: 50 (20/25 both eyes) Visual acuity (L) = 20/: 50 With correction: No IOP (L) in mmH IOP measured with: Tonopen - ENT ENT exam: Present: normal exam, normal orophraynx, mucous membranes moist, TM's normal bilaterally, normal external ear exam - Neck Neck exam: Present: normal inspection, full ROM, other (no C-spine tenderness). Absent: tenderness, lymphadenopathy - Respiratory Respiratory exam: Present: normal lung sounds bilaterally. Absent: respiratory distress, chest wall tenderness - Cardiovascular Cardiovascular Exam: Present: regular rate, normal rhythm, normal heart sounds. Absent: systolic murmur, diastolic murmur - GI/Abdominal GI/Abdominal exam: Present: soft, normal bowel sounds. Absent: distended, tenderness, guarding, rebound, rigid - Extremities Exam Extremities exam: Present: normal inspection, full ROM, normal capillary refill , other (No cce. + 2 pulses in all extremities, no neurovascular compromise). Absent: tenderness, pedal edema, joint swelling, calf tenderness - Back Exam Back exam: Present: normal inspection, full ROM, other (patient ambulates with a limp to the right side due to previous stroke and this is chronic). Absent: tenderness, rash noted ( for patient) - Neurological Exam Neurological exam: Present: alert, oriented X3, abnormal gait (this is chronic for patient due to previous stroke. She has abnormal gait to right side and she ambulates independently but limps), reflexes normal - Psychiatric Psychiatric exam: Present: normal affect, normal mood - Skin Skin exam: Present: warm, dry, intact, normal color. Absent: rash ED Course Vital Signs 09/21/17 09/21/17 17:29 22:14 Temperature 99 F Pulse Rate 79 Respiratory 16 18 Rate Blood Pressure 147/100 O2 Sat by Pulse 98 Oximetry Vital Signs 09/21/17 09/21/17 09/21/17 17:29 22:14 23:01 Temperature 99 F Pulse Rate 79 66 Respiratory 16 18 20 Rate Blood Pressure 147/100 Blood Pressure 170/102 [Left] O2 Sat by Pulse 98 96 Oximetry - Reevaluation(s) Reevaluation #1: 09/21/17 22:13 [place] 10/325 mg po x1 dose for eye pain. Eye pressure per tonopen 14, boostrix 0.5 ml im x 1 dose. stewart lamp testing with smalll left corneal abrasion. Reevaluation #2: 09/21/17 23:01 Visual acuity stable and patient was seen by Dr. Moeller and agrees with exam and treatment plan. Patient did not take her blood pressure medication today and manually her blood pressure is now 170/102 and she is asymptomatic with normal neurological status, no chest pain or shortness of breath and no headache or visual deficit except for corneal abrasion. - Procedure Description Procedures done: Stewart lamp test in. Patient's left eye examine under Stewart lamp. Tetracaine 2 drops instilled in left eye, fluorescein stain and left eye examined and patient with left eye minimal corneal abrasion. She also has chemosis from inflammation. She was given tetanus vaccine. Left eye irrigated with eye solution. Patient tolerated procedure well ED Medical Decision Making - Medical Decision Making ED course: 42-year-old female who says she woke up this morning in and experienced then irritation in her left eye redness and says that she has not had any trauma or any problems at her eye in the past. She says she does not wear contacts. She feels that there is foreign body in her eye but did not get any foreign body in eye. Tetanus vaccine is up-to-date. I saw and examined patient and procedure for Stewart lamp test done. Please see procedure note for details. Patient found to have small corneal abrasion to left eye and also conjunctival injection with chemosis to both her canthus of left eye. I discussed my findings with the patient and diagnosis and she voiced understanding. Dr. Moeller also examined patient and agrees that finding and treatment plan patient. Patient pain is controlled with pain medication. And she was given tetanus vaccine. A/P 1: Corneal abrasion: Boostrix 0.5 mL 1 dose IM. We will discharge home on gentamicin ophthalmic eyedrops and referred to patient relations manager 2: Chemosis left eye-this is a result of inflammation and expect this will reduce. I discussed the patient that if this becomes worse in her vision is affected she needs to return to the emergency room [facility] otherwise follow-up with eye doctor. Visual acuity is stable 3: Left eye pain-minimal pain and she was given [place] 10/325 mg one tablet by mouth which relieved her pain. Patient will be discharged home on Tylenol No. 3. Alex-Pen used to measure left eye pressure which was 14. 4: Elevated blood pressure with history of hypertension-the pressure is 170/102 and she is asymptomatic. She takes blood pressure medication is that she didn' t take it today so she will take it when she goes home. Discussion of keeping a log and she does have a primary care doctor to take log to primary care visit for evaluation of blood pressure Patient educated on diagnosis, medication, need to follow up with patient relations manager, worrying dark glasses to prevent photophobia. Avoid wearing contact lenses until left eye abrasion is healed and chemosis is resolved. Educated on effects of blood pressure that is elevated over a prolonged period of time on organs. Patient is stable and discharged home in stable condition. She is to follow-up with her primary care physician in 2 days to manage blood pressure and she understands that this needs to keep a log of her blood pressure and take to primary care visit. She also was nondistended discharge education. Patient vital signs stable except for blood pressure is mildly elevated without any symptoms. I discuss that if she has neurological change, chest pain or shortness of breath or any visual changes to return to the emergency room and she voiced understanding. He should follow up with patient relations manager in 2 days or to return to emergency room if her eye symptoms worsen and she voiced understanding. She is afebrile and nontoxic and discharged home in stable condition with her . - Differential Diagnosis corneal abrasion, conjunctivitis, left eye trauma, Critical care attestation.: If time is entered above; I have spent that time in minutes in the direct care of this critically ill patient, excluding procedure time. ED Disposition Clinical Impression: Acute left eye pain, Elevated blood pressure reading with diagnosis of hypertension Corneal abrasion Qualifiers: Encounter type: initial encounter Laterality: left Qualified Code(s): S05.02XA - Injury of conjunctiva and corneal abrasion without foreign body, left eye, initial encounter Chemosis of conjunctiva Qualifiers: Laterality: left Qualified Code(s): H11.422 - Conjunctival edema, left eye Disposition: DC-01 TO HOME OR SELFCARE Is pt being admited?: No Does the pt Need Aspirin: No Condition: Stable Instructions: Hypertension (ED), Corneal Abrasion (ED), Eye Pain (ED) Additional Instructions: You have chemosis which is swelling to your left eye due to corneal abrasion from inflammation. You have corneal abrasion to left eye and you need to follow up with patient relations manager in 2 days If you're eye symptoms worsen, return to the emergency room Your blood pressure was elevated today because he did not take a blood pressure medication and although your asymptomatic he'll need to keep a log a few blood pressure and follow up with primary care physician in 2-3 days for evaluation. He will need to take a blood pressure medication as prescribed to prevent from having a stroke, heart attack, kidney failure. Please instill antibiotic eyedrops as instructed Take Tylenol 3 for pain but please do not drive or operate heavy machinery as this medication causes drowsiness. Prescriptions: Acetaminophen/Codeine [Tylenol /Codeine # 3 tab] 1 tab PO Q6H PRN #12 tab PRN Reason: Pain Gentamicin 0.3% Ophth Soln 2 drops OS Q8H 7 Days #1 bottle Referrals: PRIMARY CAREMD [Primary Care Provider] - 2-3 Days HOWARD HU MD [Staff Physician] - 09/23/17 Forms: Accompanied Note, Work/School Release Form(ED)
[2017-09-21] MEDS ORDERED: TETRACAINE 0.5% OS ONE (20:04)
[2017-09-21] MEDS ORDERED: FUL-GLO OP ONE (20:04)
[2017-09-21] MEDS ORDERED: BSS OU ONE (20:24)
[2017-09-21] MEDS ORDERED: NORCO 10/325 ONE (21:56)
[2017-09-21] MEDS ORDERED: BOOSTRIX IM ONE ×2 (21:57)
[2017-09-21] MEDS ORDERED: NORCO 10/325 PO ONE (21:57)
[2017-09-21 23:02] VITALS: BP 170/102
== END 2017-09-21 23:27 | disposition home or self-care (01) ==
LOC: ED 17:17
DX: T15.02XA Foreign body in cornea, left eye, initial encounter (principal); H11.422 Conjunctival edema, left eye; F32.9 Major depressive disorder, single episode, unspecified; F17.200 Nicotine dependence, unspecified, uncomplicated; I10 Essential (primary) hypertension; Z91.018 Allergy to other foods; Z91.013 Allergy to seafood; Z91.040 Latex allergy status; Z93.0 Tracheostomy status; X58.XXXA Exposure to other specified factors, initial encounter; Y93.89 Activity, other specified; Y92.89 Other specified places as the place of occurrence of the external cause; Y99.8 Other external cause status
CPT/HCPCS: 90471; 90715

== ENCOUNTER 2018-01-08 12:57 | Emergency (ER) | payer MEDICARE ==
[2018-01-08] MEDS ORDERED: NORCO 5/325 PO ONE (15:54)
--- NOTE | 2018-01-08 15:54 | Emergency Department Report ---
ED Back Pain/Injury HPI - General Chief Complaint: Fall Stated Complaint: SLIP AND FALL Time Seen by Provider: 01/08/18 15:27 Source: patient Limitations: No Limitations - History of Present Illness Initial Comments: History this -[place] female presents with low back pain from incomplete fall today. Patient states she was in [place] eating lunch when she slipped on a greasy slippery floor around 11:00 today. Patient states she broke fall by grabbing onto the side wall. She felt and heard a pop and felt sharp shooting pain from lower back to right thigh. She denies hitting head, numbness or tingling, erythema, swelling, change in bowel pattern. MD Complaint: back pain -: This afternoon Time: 11:00 Similar Symptoms Previously: No Place: other ([place]) Radiation: right leg Severity: moderate Severity scale (0 -10): 9 Quality: sharp Consistency: constant Improves With: none Worsens With: movement, supine Context: fall Associated Symptoms: denies other symptoms - Related Data Home Medications Medication Instructions Recorded Confirmed Last Taken Amlodipine Besylate [Norvasc] 10 mg PO DAILY 07/17/17 07/17/17 Unknown Lisinopril [Zestril] 10 mg PO DAILY 07/17/17 07/17/17 Unknown Metoprolol [Lopressor TAB] 50 mg PO DAILY 07/17/17 07/17/17 Unknown Warfarin [Coumadin] 7.5 mg PO QDAY 07/17/17 07/18/17 1 Day Ago ~07/17/17 risperiDONE [RisperDAL] 1 mg PO HS 07/17/17 07/17/17 Unknown traZODone [Desyrel] 50 mg PO QHS 07/17/17 07/17/17 Unknown Previous Rx's Medication Instructions Recorded Last Taken Type Ibuprofen [Motrin 600 MG tab] 600 mg PO Q8H PRN #20 tablet 07/30/17 Unknown Rx Ibuprofen [Motrin] 600 mg PO Q8H PRN #30 tablet 08/01/17 Unknown Rx HYDROcodone/ACETAMINOPHEN [[place] 1 each PO Q6HR PRN #12 tablet 09/18/17 Unknown Rx 5-325 Tablet] Ondansetron [Zofran Odt] 4 mg PO Q4HR PRN #20 tab.rapdis 09/18/17 Unknown Rx Acetaminophen/Codeine [Tylenol 1 tab PO Q6H PRN #12 tab 09/21/17 Unknown Rx /Codeine # 3 tab] Gentamicin 0.3% Ophth Soln 2 drops OS Q8H 7 Days #1 bottle 09/21/17 Unknown Rx methOCARBAMOL [Robaxin TAB] 500 mg PO BID #10 tab 01/08/18 Unknown Rx traMADol [Ultram 50 MG tab] 50 mg PO Q6HR PRN #8 tablet 01/08/18 Unknown Rx Allergies Allergy/AdvReac Type Severity Reaction Status Date / Time banana Allergy Hives Verified 01/08/18 13:11 Fish Containing Products Allergy Hives Verified 01/08/18 13:11 Latex, Natural Rubber Allergy Hives Verified 01/08/18 13:11 ED Review of Systems ROS: Stated complaint: SLIP AND FALL Other details as noted in HPI Constitutional: denies: chills, fever Respiratory: denies: cough, shortness of breath, wheezing Cardiovascular: denies: chest pain, palpitations Gastrointestinal: denies: abdominal pain, nausea, diarrhea Musculoskeletal: back pain (low back pain radiating to right lower extremity). denies: joint swelling, arthralgia Skin: denies: rash, lesions Neurological: denies: headache, weakness, paresthesias Psychiatric: denies: anxiety, depression ED Past Medical Hx - Past Medical History trach Family history: diabetes, hypertension ED Back Pain Physical Exam - Exam General: Vital signs noted. No distress. Alert and acting appropriately. Back/Abdomen: Yes Sacroiliac Tenderness (bilaterally), Yes Straight Leg Raise Pain (right lower extremity), No Abdominal Tenderness, No Perithoracic Tenderness, No Perilumbar Tenderness, No Flank Tenderness Neuro: Yes Normal Sensation, Yes Normal DTR's, Yes Normal Gait, No Motor Weakness ED Course Vital Signs 01/08/18 13:12 Temperature 98.8 F Pulse Rate 94 H Respiratory 20 Rate Blood Pressure 193/103 O2 Sat by Pulse 96 Oximetry Vital Signs 01/08/18 01/08/18 13:12 17:21 Temperature 98.8 F Pulse Rate 94 H 84 Respiratory 20 16 Rate Blood Pressure 193/103 Blood Pressure 164/90 [Left] O2 Sat by Pulse 96 97 Oximetry Ed Back Pain Tests - Tests Tests: Normal X Rays ED Medical Decision Making - Radiology Data Radiology results: report reviewed, image reviewed FINAL REPORT EXAM: XR SPINE LUMBOSACRAL 2-3V HISTORY: low back pain TECHNIQUE: Lumbar spine 3 views PRIORS: None. FINDINGS: Vertebral bodies demonstrate normal height and alignment. The disc spaces are within normal limits. There is no evidence of spondylolisthesis. Transverse and spinous processes are intact SI joints are unremarkable. IMPRESSION: Negative lumbar spine series - Medical Decision Making Patient was examined by me. Vitals are normal and patient is in no acute distress. Given [place] 5/325 mg by mouth once while in ER. Obtained a x-ray of L-spine. X-rays dictated by radiologist and report reviewed by myself with no acute findings. Patient informed of results. Physical findings susceptible of muscle strain. Start ibuprofen and Robaxin for pain. Referral to orthopedic surgery for further evaluation if symptoms are not improving as discussed. Patient discharged home in stable condition. Follow up with PCP in 2-3 days. Critical care attestation.: If time is entered above; I have spent that time in minutes in the direct care of this critically ill patient, excluding procedure time. ED Disposition Clinical Impression: Sciatica, right side, Asymptomatic hypertension Low back pain Qualifiers: Chronicity: acute Back pain laterality: bilateral Sciatica presence: with sciatica Sciatica laterality: sciatica of right side Qualified Code(s): M54.41 - Lumbago with sciatica, right side Fall Qualifiers: Encounter type: initial encounter Qualified Code(s): W19.XXXA - Unspecified fall, initial encounter Disposition: TO HOME OR SELFCARE Is pt being admited?: No Does the pt Need Aspirin: No Condition: Stable Instructions: Sciatica (ED), Hypertension (ED), Fall Prevention (ED) Additional Instructions: Rest Use ice or heat on affected area for 20 minutes and off for 2 hours. Take pain medication as needed for pain. Don't drive or operate heavy machinery while taking muscle relaxers because they may cause drowsiness. Follow up with Primary Care Provider in 2-3 days. Prescriptions: methOCARBAMOL [Robaxin TAB] 500 mg PO BID #10 tab traMADol [Ultram 50 MG tab] 50 mg PO Q6HR PRN #8 tablet PRN Reason: Pain Referrals: ABNER MELENDEZ MD [Staff Physician] - 3-5 Days [facility] [Provider Group] - 3-5 Days [facility] [Outside] - 3-5 Days Time of Disposition: 17:06
--- NOTE | 2018-01-08 16:27 | XRay Report ---
FINAL REPORT EXAM: XR SPINE LUMBOSACRAL 2-3V HISTORY: low back pain TECHNIQUE: Lumbar spine 3 views PRIORS: None. FINDINGS: Vertebral bodies demonstrate normal height and alignment. The disc spaces are within normal limits. There is no evidence of spondylolisthesis. Transverse and spinous processes are intact SI joints are unremarkable. IMPRESSION: Negative lumbar spine series
[2018-01-08 17:22] VITALS: BP 164/90
== END 2018-01-08 17:34 | disposition home or self-care (01) ==
LOC: ED 12:57
DX: M54.41 Lumbago with sciatica, right side (principal); I10 Essential (primary) hypertension; Z91.040 Latex allergy status; Z91.013 Allergy to seafood; Z91.018 Allergy to other foods
CPT/HCPCS: 72100; 99283